=== PATIENT | male | born 1970 | race American Indian/Alaskan Native ===

== ENCOUNTER 2017-01-01 00:56 | Emergency (ER) | payer OTHER, BC ==
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
[2017-01-01] MEDS ORDERED: MOTRIN PO ONE (10:04)
[2017-01-01] MEDS ORDERED: TYLENOL PO ONE (10:12)
[2017-01-01] MEDS ORDERED: TYLENOL ONE (10:16)
[2017-01-01 10:26] VITALS: BP 122/81
== END 2017-01-01 10:23 | disposition home or self-care (01) ==
LOC: ED 00:56
DX: S09.90XA Unspecified injury of head, initial encounter (principal); G44.319 Acute post-traumatic headache, not intractable; M54.2 Cervicalgia; I10 Essential (primary) hypertension; E11.9 Type 2 diabetes mellitus without complications; Z88.6 Allergy status to analgesic agent; V49.49XA Driver injured in collision with other motor vehicles in traffic accident, initial encounter; Y92.488 Other paved roadways as the place of occurrence of the external cause; Y93.89 Activity, other specified; Y99.9 Unspecified external cause status
CPT/HCPCS: 70450; 72125

== ENCOUNTER 2017-09-24 11:00 | Outpatient (CLI) | payer BC | END 2017-09-24 11:01 | disposition home or self-care (01) | LOC: SLR 11:00 | PROVIDERS: ATTEND Otolaryngology | DX: G47.33 Obstructive sleep apnea (adult) (pediatric) (principal); I10 Essential (primary) hypertension; Z90.49 Acquired absence of other specified parts of digestive tract | CPT/HCPCS: 95811 ==

== ENCOUNTER 2019-11-14 10:31 | Outpatient (CLI) | payer OTHER ==
--- NOTE | 2019-11-14 11:58 | Cat Scan Report ---
CT ABDOMEN AND PELVIS WITHOUT CONTRAST INDICATION / CLINICAL INFORMATION: N20.0 CALCULUS OF KIDNEY. TECHNIQUE: Axial CT images were obtained through the abdomen and pelvis without IV contrast. All CT scans at [facility] location are performed using CT dose reduction for ALARA by means of automated exposure control. COMPARISON: None available. FINDINGS: LOWER CHEST: 5 mm perifissural nodule in the left likely representing benign intrapulmonary lymph nod e. HEPATOBILIARY: Satisfactory noncontrast appearance of the liver. Cholecystectomy status. No biliary d uctal dilatation. PANCREAS: No significant abnormality. SPLEEN: No significant abnormality. ADRENALS: 3.4 cm right adrenal nodule with attenuation characteristics suggestive of with rich adenom a. GENITOURINARY: Right renal hypodensity at the anterior interpolar region which is too small to defini tely characterize, possible cyst. No nephrolithiasis. No evidence of obstructive uropathy. Bladder ap pears normal. GASTROINTESTINAL/MESENTERY: No bowel obstruction or inflammation. Appendix appears unremarkable. No f ree air or significant free fluid. RETROPERITONEUM: No significant adenopathy. REPRODUCTIVE ORGANS: No significant abnormality. VASCULAR: Minimal atherosclerotic calcification. Nonaneurysmal aorta. SKELETAL SYSTEM: No significant abnormality. ADDITIONAL FINDINGS: Small fat-containing available for hernia. IMPRESSION: 1. No acute abdominopelvic pathology. 2. Subcentimeter right renal hypodensity, possible cyst. No nephrolithiasis or obstructive uropathy. 3. 3.4 cm right adrenal nodule with characteristics suggestive of a lipid rich adenoma. Signer Name: Spike Mendiola MD Signed: 11/14/2019 11:54 AM Workstation Name: [id number]
== END 2019-11-14 10:32 | disposition home or self-care (01) ==
LOC: CT 10:31
PROVIDERS: ATTEND Urology
DX: N20.0 Calculus of kidney (principal); I70.0 Atherosclerosis of aorta; R91.1 Solitary pulmonary nodule
CPT/HCPCS: 74176

== ENCOUNTER 2021-11-11 14:01 | Outpatient (CLI) | payer OTHER ==
--- NOTE | 2021-11-11 16:28 | Cat Scan Report ---
CT ABDOMEN AND PELVIS WITHOUT CONTRAST INDICATION / CLINICAL INFORMATION: E29.1 TESTICULAR HYPOGONADISM. TECHNIQUE: Axial CT images were obtained through the abdomen and pelvis without IV contrast. All CT scans at this location are performed using CT dose reduction for ALARA by means of automated exposure control. COMPARISON: 11/14/2019 FINDINGS: LOWER CHEST: No significant abnormality. AORTA / ARTERIES: No significant abnormality. IVC / VEINS: No significant abnormality. LYMPH NODES: No significant adenopathy. COLON: No significant abnormality. APPENDIX: No significant abnormality. STOMACH / SMALL BOWEL: No significant abnormality. PERITONEUM: No free fluid. No free air. No fluid collection. LIVER: No significant abnormality. GALLBLADDER: Cholecystectomy. BILE DUCTS: No significant abnormality. PANCREAS: No significant abnormality. SPLEEN: No significant abnormality. ADRENALS: 3.1 cm right adrenal adenoma. Left adrenal gland is unremarkable. RIGHT KIDNEY / URETER: Right renal cyst. No acute findings. LEFT KIDNEY / URETER: No significant abnormality. URINARY BLADDER: No significant abnormality. REPRODUCTIVE ORGANS: No significant abnormality. SKELETAL SYSTEM: Scattered degeneration. ADDITIONAL FINDINGS: None. IMPRESSION: 1. No CT findings to explain symptomatology. Signer Name: Paco Fry DO Signed: 11/11/2021 4:23 PM Workstation Name: [id number]
== END 2021-11-11 14:02 | disposition home or self-care (01) ==
LOC: CT 14:01
PROVIDERS: ATTEND Urology
DX: N28.1 Cyst of kidney, acquired (principal); E29.1 Testicular hypofunction
CPT/HCPCS: 74176